=== PATIENT | female | born 1965 | race African-American/Black ===

== ENCOUNTER 2022-06-25 14:27 | Inpatient (IN) ==
[2022-06-25] MEDS ORDERED: SODIUM CHLORIDE 0.9% 1,000 ML IV STA (15:14)
[2022-06-25 15:45] LABS: Basophils # 0.1 10*3/uL (0.0-0.2); Basophils % 0.3 % (0.0-0.8); Eosinophils % 0.1 % (0.00-10.9); Hematocrit 35.5 VOL% (35.7-47.0); Hemoglobin 11.6 GM/DL (12.0-16.0); Immature Granulocytes % 2.5 %; Immature Granulocytes Absolute 0.62 #; Lymphocytes # 1.1 10*3/uL (1.4-4.0); Lymphocytes % 4.3 % (21.3-54.2); Mean Corpuscular HGB Conc 32.7 GM/DL (32-36); Mean Corpuscular Volume 93.2 FL (87-102); Mean Platelet Volume 10.6 FL (9.6-12.0); Monocytes # 1.1 10*3/uL (0.11-0.8); Monocytes % 4.5 % (1.7-12.7); Neutrophils % 88.3 % (38.7-73.9); Platelet Count 184 T/CUMM (130-400); Red Blood Count 3.81 MC/CUMM (3.8-5.5); White Blood Count 25.1 T/CUMM (4-12)
[2022-06-25 15:53] LABS: Albumin 2.6 G/DL (3.4-5.0); Bilirubin,Total 1.1 MG/DL (0.20-1.00); Calcium 8.4 MG/DL (8.5-10.1); Osmolality,Calculated 283.5 MOS/KG (273-304); Potassium 3.5 MMOL/L (3.5-5.1); Total Protein 6.5 G/DL (6.4-8.2)
[2022-06-25] MEDS ORDERED: LACTATED RINGERS 1,000 ML IV ONE ×2 (15:56→17:26)
[2022-06-25 15:57] LABS: Amorphous Crystals,Urine Occasional /HPF (Few); Bacteria,Urine Occasional /HPF (Few); Mucus,Urine Many /LPF (Occasional); Urine Appearance Clear (Clear); Urine Color Yellow (Yellow)
[2022-06-25 15:58] LABS: Bilirubin,Urine Small mg/dL (Negative); Blood, Urine Large mg/dL (Negative); Glucose,Urine (UA) Negative (Negative); Ketones,Urine Negative (Negative); Nitrite,Urine Negative (Negative); Protein,Urine >=300 mg/dL (Negative); Urine Specific Gravity >= 1.030 (1.001-1.035); Urine Urobilinogen < 2.0 eU/dL (<2.0)
[2022-06-25 16:16] LABS: Arterial Base Excess iSTAT -3 MMOL/L (-2.5-2.5); Arterial Bicarbonate iSTAT 21.5 MMOL/L (20-26); Arterial O2 Saturation iSTAT 98 % (95-100); Arterial PCO2 iSTAT 35 MM HG (35-48); Arterial PO2 iSTAT 108 MM HG (80-95); Arterial Total CO2 iSTAT 23 MMO/L (23-27); Arterial pH iSTAT 7.401 (7.35-7.45)
[2022-06-25 16:19] LABS: Band Neutrophils 18 % (0-10); Lymphocytes 7 % (20-55); Metamyelocytes 3 %; Total Cells Counted 100
[2022-06-25] MEDS ORDERED: VANCOMYCIN INJ 1,000 MG in SODIUM CHLORIDE 0.9% 250 ML IV STA (16:36)
[2022-06-25] MEDS ORDERED: PIPERACILLIN/TAZOBACTAM 3,375 MG in SODIUM CHLORIDE 0.9% 100 ML IV STA (16:36)
[2022-06-25] MEDS ORDERED: LACTATED RINGERS 400 ML IV ONE (17:31)
[2022-06-25 18:02] LABS: Thyroid Stimulating Hormone 1.68 uIU/ml (0.358-3.74)
[2022-06-25] MEDS: ONDANSETRON 4 MG/2 ML VIAL IV PRN ×2 (18:24→20:00)
[2022-06-25] MEDS ORDERED: VANCOMYCIN INJ 500 MG in SODIUM CHLORIDE 0.9% 100 ML IV ONE (19:00)
[2022-06-25] MEDS: HEPARIN 5,000 UNIT/1 ML VIAL SUBCUT SCH (22:10)
[2022-06-25 22:57] LABS: Amorphous Crystals,Urine Moderate /HPF (Few); RBC,Urine 89 /HPF (0-4); Squamous Epithelial Cell,Urine Occasional /HPF (0-10)
[2022-06-25 22:58] LABS: Glucose,Urine (UA) Negative (Negative); Ketones,Urine Negative (Negative); Nitrite,Urine Negative (Negative); Protein,Urine >=300 mg/dL (Negative); Urine Appearance Cloudy (Clear); Urine Color Yellow (Yellow); Urine Specific Gravity 1.025 (1.001-1.035); Urine pH 5.5 (4.5-8.0)
[2022-06-25 22:59] LABS: Bilirubin,Urine Small mg/dL (Negative); Blood, Urine Large mg/dL (Negative)
[2022-06-26 01:33] LABS: Basophils % 0.1 % (0.0-0.8); Hematocrit 32.4 VOL% (35.7-47.0); Hemoglobin 11.1 GM/DL (12.0-16.0); Immature Granulocytes % 1.5 %; Immature Granulocytes Absolute 0.43 #; Lymphocytes # 1.7 10*3/uL (1.4-4.0); Lymphocytes % 5.8 % (21.3-54.2); Mean Corpuscular HGB Conc 34.3 GM/DL (32-36); Mean Corpuscular Volume 91.5 FL (87-102); Mean Platelet Volume 10.7 FL (9.6-12.0); Monocytes # 1.6 10*3/uL (0.11-0.8); Monocytes % 5.4 % (1.7-12.7); Neutrophils % 87.2 % (38.7-73.9); Platelet Count 176 T/CUMM (130-400); Red Blood Count 3.54 MC/CUMM (3.8-5.5); Red Cell Distribution Width 13.9 % (9.3-17.3); White Blood Count 29.3 T/CUMM (4-12)
[2022-06-26 01:50] LABS: Albumin 2.3 G/DL (3.4-5.0); Bilirubin,Total 1.1 MG/DL (0.20-1.00); Calcium 8.1 MG/DL (8.5-10.1); Osmolality,Calculated 284.7 MOS/KG (273-304); Potassium 3.3 MMOL/L (3.5-5.1); Total Protein 6.4 G/DL (6.4-8.2)
[2022-06-26 02:48] LABS: Band Neutrophils 4 % (0-10); Lymphocytes 7 % (20-55); Nucleated Red Blood Cells 1 /100 WBC (0-5); Total Cells Counted 100
[2022-06-26 02:49] LABS: Platelet Estimate Adequate
[2022-06-26] MEDS: PIPERACILLIN/TAZOBACTAM 3.375 MG in SODIUM CHLORIDE 0.9% 100 ML IV SCH ×2 (03:30→16:30)
[2022-06-26] MEDS: LACTATED RINGERS 1,000 ML IV SCH ×3 (09:00→20:15)
[2022-06-26] MEDS: PANTOPRAZOLE 40 MG TABLET PO SCH (09:01)
[2022-06-26] MEDS: HEPARIN 5,000 UNIT/1 ML VIAL SUBCUT SCH ×2 (09:01→20:25)
[2022-06-26] MEDS: POTASSIUM CHLORIDE 20 MEQ TABLET PO SCH ×3 (10:47→21:00)
[2022-06-26] MEDS ORDERED: POTASSIUM CHLORIDE 20 MEQ TABLET PO SCH (14:00)
[2022-06-26] MEDS: ACETAMINOPHEN 325 MG TABLET PO PRN (15:32)
[2022-06-26] MEDS ORDERED: VANCOMYCIN INJ 1,500 MG in SODIUM CHLORIDE 0.9% 500 ML IV PRN (17:00)
[2022-06-26] MEDS ORDERED: VANCOMYCIN INJ 1,500 MG in SODIUM CHLORIDE 0.9% 500 ML IV ONE (21:00)
[2022-06-27] MEDS: LACTATED RINGERS 1,000 ML IV SCH ×4 (03:00→19:56)
[2022-06-27] MEDS: PIPERACILLIN/TAZOBACTAM 3.375 MG in SODIUM CHLORIDE 0.9% 100 ML IV SCH ×2 (03:00→16:30)
[2022-06-27 06:04] LABS: Basophils # 0.1 10*3/uL (0.0-0.2); Basophils % 0.3 % (0.0-0.8); Eosinophils # 0.1 10*3/uL (0.0-0.87); Eosinophils % 0.3 % (0.00-10.9); Hematocrit 31.1 VOL% (35.7-47.0); Hemoglobin 10.8 GM/DL (12.0-16.0); Immature Granulocytes % 2.3 %; Immature Granulocytes Absolute 0.58 #; Lymphocytes # 2.2 10*3/uL (1.4-4.0); Lymphocytes % 8.8 % (21.3-54.2); Mean Corpuscular HGB Conc 34.7 GM/DL (32-36); Mean Platelet Volume 11.1 FL (9.6-12.0); Monocytes # 1.1 10*3/uL (0.11-0.8); Monocytes % 4.5 % (1.7-12.7); Neutrophils % 83.8 % (38.7-73.9); Platelet Count 151 T/CUMM (130-400); Red Blood Count 3.38 MC/CUMM (3.8-5.5); Red Cell Distribution Width 14.4 % (9.3-17.3); White Blood Count 25.2 T/CUMM (4-12)
[2022-06-27 06:29] LABS: Albumin 1.8 G/DL (3.4-5.0); Bilirubin,Total 0.8 MG/DL (0.20-1.00); Calcium 8.4 MG/DL (8.5-10.1); Osmolality,Calculated 284.5 MOS/KG (273-304); Potassium 4.7 MMOL/L (3.5-5.1); Total Protein 6.1 G/DL (6.4-8.2)
[2022-06-27 06:33] LABS: Atypical Lymphocytes Few; Eosinophils 1 % (0-10); Lymphocytes 7 % (20-55); Platelet Estimate Adequate; Total Cells Counted 100
[2022-06-27 06:34] LABS: Anisocytosis Slight; Burr Cells Few
[2022-06-27] MEDS: HEPARIN 5,000 UNIT/1 ML VIAL SUBCUT SCH ×2 (09:05→20:42)
[2022-06-27] MEDS: PANTOPRAZOLE 40 MG TABLET PO SCH (09:05)
[2022-06-27] MEDS: traMADol 50 MG TABLET PO PRN (19:00)
[2022-06-27] MEDS: NYSTATIN CREAM 15 GM TUBE TOP SCH (20:42)
[2022-06-27] MEDS: NYSTATIN POWDER 15 GM BOTTLE TOP SCH (20:43)
[2022-06-28] MEDS: LACTATED RINGERS 1,000 ML IV SCH ×3 (03:14→14:45)
[2022-06-28] MEDS: PIPERACILLIN/TAZOBACTAM 3.375 MG in SODIUM CHLORIDE 0.9% 100 ML IV SCH ×3 (04:43→23:32)
[2022-06-28 05:21] LABS: Basophils # 0.1 10*3/uL (0.0-0.2); Basophils % 0.4 % (0.0-0.8); Eosinophils # 0.1 10*3/uL (0.0-0.87); Eosinophils % 0.5 % (0.00-10.9); Hematocrit 31.5 VOL% (35.7-47.0); Hemoglobin 10.5 GM/DL (12.0-16.0); Immature Granulocytes % 1.4 %; Immature Granulocytes Absolute 0.37 #; Lymphocytes # 2.9 10*3/uL (1.4-4.0); Lymphocytes % 11.2 % (21.3-54.2); Mean Corpuscular HGB Conc 33.3 GM/DL (32-36); Mean Corpuscular Volume 93.5 FL (87-102); Mean Platelet Volume 11.5 FL (9.6-12.0); Monocytes # 1.1 10*3/uL (0.11-0.8); Monocytes % 4.1 % (1.7-12.7); Neutrophils % 82.4 % (38.7-73.9); Platelet Count 160 T/CUMM (130-400); Red Blood Count 3.37 MC/CUMM (3.8-5.5); Red Cell Distribution Width 14.6 % (9.3-17.3)
[2022-06-28 05:38] LABS: Albumin 1.7 G/DL (3.4-5.0); Bilirubin,Total 0.8 MG/DL (0.20-1.00); Calcium 8.8 MG/DL (8.5-10.1); Osmolality,Calculated 277.7 MOS/KG (273-304); Potassium 4.4 MMOL/L (3.5-5.1); Total Protein 6.1 G/DL (6.4-8.2)
[2022-06-28 05:41] LABS: Band Neutrophils 2 % (0-10); Lymphocytes 8 % (20-55); Platelet Estimate Adequate; Total Cells Counted 100
[2022-06-28] MEDS: PANTOPRAZOLE 40 MG TABLET PO SCH (08:38)
[2022-06-28] MEDS: NYSTATIN POWDER 15 GM BOTTLE TOP SCH ×2 (08:38→21:26)
[2022-06-28] MEDS: HEPARIN 5,000 UNIT/1 ML VIAL SUBCUT SCH ×2 (08:38→21:26)
[2022-06-28] MEDS: NYSTATIN CREAM 15 GM TUBE TOP SCH ×2 (08:38→21:26)
[2022-06-29] MEDS: LACTATED RINGERS 1,000 ML IV SCH ×2 (00:40→10:00)
[2022-06-29 04:56] LABS: Basophils # 0.1 10*3/uL (0.0-0.2); Basophils % 0.4 % (0.0-0.8); Eosinophils # 0.2 10*3/uL (0.0-0.87); Eosinophils % 0.7 % (0.00-10.9); Hematocrit 28.9 VOL% (35.7-47.0); Hemoglobin 9.6 GM/DL (12.0-16.0); Immature Granulocytes % 2.2 %; Immature Granulocytes Absolute 0.51 #; Lymphocytes # 3.4 10*3/uL (1.4-4.0); Lymphocytes % 14.6 % (21.3-54.2); Mean Corpuscular HGB Conc 33.2 GM/DL (32-36); Mean Corpuscular Volume 93.8 FL (87-102); Monocytes # 1.4 10*3/uL (0.11-0.8); Monocytes % 6.1 % (1.7-12.7); Platelet Count 190 T/CUMM (130-400); Red Blood Count 3.08 MC/CUMM (3.8-5.5); Red Cell Distribution Width 14.6 % (9.3-17.3); White Blood Count 23.5 T/CUMM (4-12)
[2022-06-29 05:19] LABS: Eosinophils 2 % (0-10); Lymphocytes 10 % (20-55); Platelet Estimate Adequate; Total Cells Counted 100
[2022-06-29 05:27] LABS: Calcium 8.6 MG/DL (8.5-10.1); Osmolality,Calculated 281.3 MOS/KG (273-304); Potassium 4.3 MMOL/L (3.5-5.1)
[2022-06-29] MEDS: PIPERACILLIN/TAZOBACTAM 3.375 MG in SODIUM CHLORIDE 0.9% 100 ML IV SCH (05:59)
[2022-06-29] MEDS: PANTOPRAZOLE 40 MG TABLET PO SCH (08:21)
[2022-06-29] MEDS: HEPARIN 5,000 UNIT/1 ML VIAL SUBCUT SCH ×2 (08:21→20:55)
[2022-06-29] MEDS: NYSTATIN CREAM 15 GM TUBE TOP SCH ×2 (08:22→20:55)
[2022-06-29] MEDS: NYSTATIN POWDER 15 GM BOTTLE TOP SCH ×2 (08:22→20:55)
[2022-06-29] MEDS ORDERED: PNEUMOCOCCAL VACCINE (23 VALENT) 0.5 ML VIAL IM ONE (09:00)
[2022-06-29] MEDS ORDERED: INFLUENZA VIRUS VACCINE 0.5 ML SYRINGE IM ONE (09:26)
[2022-06-29] MEDS: CHOLESTYRAMINE/ASPARTAME 4 GM PACK PO SCH ×2 (10:54→21:28)
[2022-06-29] MEDS: amLODIPine 5 MG TABLET PO SCH (10:54)
[2022-06-29] MEDS: METOPROLOL TARTRATE 50 MG TABLET PO SCH ×2 (10:54→20:55)
[2022-06-29] MEDS: MENTHOL/ZINC OXIDE OINT 71 GM JAR TOP SCH (20:55)
[2022-06-30 06:00] LABS: Basophils # 0.1 10*3/uL (0.0-0.2); Basophils % 0.5 % (0.0-0.8); Eosinophils # 0.2 10*3/uL (0.0-0.87); Hemoglobin 9.9 GM/DL (12.0-16.0); Immature Granulocytes % 5.3 %; Immature Granulocytes Absolute 1.25 #; Lymphocytes # 3.8 10*3/uL (1.4-4.0); Lymphocytes % 16.4 % (21.3-54.2); Mean Corpuscular Volume 94.6 FL (87-102); Mean Platelet Volume 10.8 FL (9.6-12.0); Monocytes # 1.4 10*3/uL (0.11-0.8); Neutrophils % 70.8 % (38.7-73.9); Platelet Count 230 T/CUMM (130-400); Red Blood Count 3.17 MC/CUMM (3.8-5.5); Red Cell Distribution Width 14.5 % (9.3-17.3); White Blood Count 23.5 T/CUMM (4-12)
[2022-06-30 06:23] LABS: Eosinophils 2 % (0-10); Hypochromia Slight; Lymphocytes 14 % (20-55); Microcytosis Slight; Platelet Estimate Adequate; Total Cells Counted 100
[2022-06-30 06:28] LABS: Calcium 8.7 MG/DL (8.5-10.1); Osmolality,Calculated 281.3 MOS/KG (273-304); Potassium 4.2 MMOL/L (3.5-5.1)
[2022-06-30] MEDS: HEPARIN 5,000 UNIT/1 ML VIAL SUBCUT SCH ×2 (08:14→20:14)
[2022-06-30] MEDS: MENTHOL/ZINC OXIDE OINT 71 GM JAR TOP SCH ×2 (08:14→20:17)
[2022-06-30] MEDS: traMADol 50 MG TABLET PO PRN ×2 (08:14→13:19)
[2022-06-30] MEDS: PANTOPRAZOLE 40 MG TABLET PO SCH (08:15)
[2022-06-30] MEDS: NYSTATIN POWDER 15 GM BOTTLE TOP SCH ×2 (08:15→20:19)
[2022-06-30] MEDS: amLODIPine 5 MG TABLET PO SCH (08:15)
[2022-06-30] MEDS: METOPROLOL TARTRATE 50 MG TABLET PO SCH ×2 (08:15→20:14)
[2022-06-30] MEDS: NYSTATIN CREAM 15 GM TUBE TOP SCH ×2 (08:15→20:19)
[2022-06-30] MEDS ORDERED: cefTRIAXone 1,000 MG in SODIUM CHLORIDE 0.9% 100 ML IV SCH (08:30)
[2022-06-30] MEDS: CHOLESTYRAMINE/ASPARTAME 4 GM PACK PO SCH (09:23)
[2022-06-30 12:13] LABS: INR 0.9; PT Patient Result 10.4 SECS (10.1-12.1)
[2022-06-30] MEDS: cefTRIAXone 2,000 MG in SODIUM CHLORIDE 0.9% 100 ML IV SCH (20:14)
[2022-07-01 05:37] LABS: Basophils # 0.1 10*3/uL (0.0-0.2); Basophils % 0.5 % (0.0-0.8); Eosinophils # 0.2 10*3/uL (0.0-0.87); Eosinophils % 0.9 % (0.00-10.9); Hematocrit 29.8 VOL% (35.7-47.0); Hemoglobin 9.7 GM/DL (12.0-16.0); Immature Granulocytes % 5.6 %; Immature Granulocytes Absolute 1.19 #; Lymphocytes # 4.1 10*3/uL (1.4-4.0); Mean Corpuscular HGB Conc 32.6 GM/DL (32-36); Mean Platelet Volume 10.6 FL (9.6-12.0); Monocytes # 1.6 10*3/uL (0.11-0.8); Monocytes % 7.5 % (1.7-12.7); Neutrophils % 66.5 % (38.7-73.9); Platelet Count 289 T/CUMM (130-400); Red Blood Count 3.17 MC/CUMM (3.8-5.5); Red Cell Distribution Width 14.1 % (9.3-17.3); White Blood Count 21.4 T/CUMM (4-12)
[2022-07-01 05:57] LABS: Calcium 8.7 MG/DL (8.5-10.1); Osmolality,Calculated 275.7 MOS/KG (273-304); Potassium 4.1 MMOL/L (3.5-5.1)
[2022-07-01 06:04] LABS: Anisocytosis Slight; Atypical Lymphocytes Few; Band Neutrophils 7 % (0-10); Eosinophils 3 % (0-10); Lymphocytes 23 % (20-55); Myelocytes 1 %; Platelet Estimate Normal; Total Cells Counted 100
[2022-07-01] MEDS: PANTOPRAZOLE 40 MG TABLET PO SCH (09:09)
[2022-07-01] MEDS: amLODIPine 5 MG TABLET PO SCH (09:09)
[2022-07-01] MEDS: HEPARIN 5,000 UNIT/1 ML VIAL SUBCUT SCH ×2 (09:09→21:41)
[2022-07-01] MEDS: METOPROLOL TARTRATE 50 MG TABLET PO SCH ×2 (09:09→21:41)
[2022-07-01] MEDS: NYSTATIN CREAM 15 GM TUBE TOP SCH ×2 (09:11→21:40)
[2022-07-01] MEDS: MENTHOL/ZINC OXIDE OINT 71 GM JAR TOP SCH ×2 (09:11→21:40)
[2022-07-01] MEDS: NYSTATIN POWDER 15 GM BOTTLE TOP SCH ×2 (09:11→21:40)
[2022-07-01] MEDS: cefTRIAXone 2,000 MG in SODIUM CHLORIDE 0.9% 100 ML IV SCH (21:41)
[2022-07-02 05:29] LABS: Basophils # 0.1 10*3/uL (0.0-0.2); Basophils % 0.4 % (0.0-0.8); Eosinophils # 0.1 10*3/uL (0.0-0.87); Eosinophils % 0.7 % (0.00-10.9); Hematocrit 29.9 VOL% (35.7-47.0); Immature Granulocytes % 4.4 %; Immature Granulocytes Absolute 0.83 #; Lymphocytes # 3.7 10*3/uL (1.4-4.0); Lymphocytes % 19.5 % (21.3-54.2); Mean Corpuscular HGB Conc 33.4 GM/DL (32-36); Mean Corpuscular Volume 94.6 FL (87-102); Mean Platelet Volume 10.8 FL (9.6-12.0); Monocytes # 1.3 10*3/uL (0.11-0.8); Monocytes % 6.9 % (1.7-12.7); Neutrophils % 68.1 % (38.7-73.9); Platelet Count 342 T/CUMM (130-400); Red Blood Count 3.16 MC/CUMM (3.8-5.5); Red Cell Distribution Width 14.2 % (9.3-17.3)
[2022-07-02 05:34] LABS: Calcium 8.8 MG/DL (8.5-10.1); Osmolality,Calculated 274.7 MOS/KG (273-304)
[2022-07-02 07:09] LABS: Atypical Lymphocytes Few; Band Neutrophils 2 % (0-10); Eosinophils 1 % (0-10); Lymphocytes 18 % (20-55); Nucleated Red Blood Cells 2 /100 WBC (0-5); Platelet Estimate Normal; Total Cells Counted 100
[2022-07-02 07:10] LABS: Anisocytosis Slight; Macrocytosis Slight
[2022-07-02] MEDS: NYSTATIN POWDER 15 GM BOTTLE TOP SCH ×2 (11:04→21:53)
[2022-07-02] MEDS: METOPROLOL TARTRATE 50 MG TABLET PO SCH ×2 (11:04→21:48)
[2022-07-02] MEDS: NYSTATIN CREAM 15 GM TUBE TOP SCH ×2 (11:04→21:53)
[2022-07-02] MEDS: HEPARIN 5,000 UNIT/1 ML VIAL SUBCUT SCH ×2 (11:04→21:48)
[2022-07-02] MEDS: MENTHOL/ZINC OXIDE OINT 71 GM JAR TOP SCH ×2 (11:04→21:53)
[2022-07-02] MEDS: amLODIPine 5 MG TABLET PO SCH (11:04)
[2022-07-02] MEDS: PANTOPRAZOLE 40 MG TABLET PO SCH (11:05)
[2022-07-02] MEDS: cefTRIAXone 2,000 MG in SODIUM CHLORIDE 0.9% 100 ML IV SCH (21:48)
[2022-07-03 04:49] LABS: Basophils # 0.1 10*3/uL (0.0-0.2); Basophils % 0.4 % (0.0-0.8); Eosinophils # 0.1 10*3/uL (0.0-0.87); Eosinophils % 0.7 % (0.00-10.9); Hematocrit 29.3 VOL% (35.7-47.0); Hemoglobin 9.9 GM/DL (12.0-16.0); Immature Granulocytes % 1.9 %; Immature Granulocytes Absolute 0.32 #; Lymphocytes # 3.5 10*3/uL (1.4-4.0); Lymphocytes % 20.9 % (21.3-54.2); Mean Corpuscular HGB Conc 33.8 GM/DL (32-36); Mean Corpuscular Volume 93.6 FL (87-102); Mean Platelet Volume 10.3 FL (9.6-12.0); Monocytes # 1.2 10*3/uL (0.11-0.8); Monocytes % 7.4 % (1.7-12.7); Neutrophils % 68.7 % (38.7-73.9); Platelet Count 361 T/CUMM (130-400); Red Blood Count 3.13 MC/CUMM (3.8-5.5); Red Cell Distribution Width 14.2 % (9.3-17.3); White Blood Count 16.7 T/CUMM (4-12)
[2022-07-03 05:12] LABS: Calcium 8.8 MG/DL (8.5-10.1); Osmolality,Calculated 281.3 MOS/KG (273-304)
[2022-07-03] MEDS: amLODIPine 5 MG TABLET PO SCH (09:27)
[2022-07-03] MEDS: METOPROLOL TARTRATE 50 MG TABLET PO SCH ×2 (09:27→22:37)
[2022-07-03] MEDS: PANTOPRAZOLE 40 MG TABLET PO SCH (09:27)
[2022-07-03] MEDS: HEPARIN 5,000 UNIT/1 ML VIAL SUBCUT SCH ×2 (09:27→22:38)
[2022-07-03] MEDS: NYSTATIN POWDER 15 GM BOTTLE TOP SCH (09:29)
[2022-07-03] MEDS: NYSTATIN CREAM 15 GM TUBE TOP SCH (09:29)
[2022-07-03] MEDS: MENTHOL/ZINC OXIDE OINT 71 GM JAR TOP SCH (09:29)
[2022-07-03] MEDS: cefTRIAXone 2,000 MG in SODIUM CHLORIDE 0.9% 100 ML IV SCH (22:36)
[2022-07-03] MEDS: SIMETHICONE CHEW 125 MG TABLET PO SCH (22:37)
[2022-07-03] MEDS: BISACODYL 5 MG TABLET PO PRN (22:37)
[2022-07-03] MEDS: traMADol 50 MG TABLET PO PRN (22:38)
[2022-07-03] MEDS: POLYETHYLENE GLYCOL POWDER 17 GM PACK PO SCH (22:38)
[2022-07-04] MEDS: NYSTATIN CREAM 15 GM TUBE TOP SCH ×3 (01:55→21:37)
[2022-07-04] MEDS: MENTHOL/ZINC OXIDE OINT 71 GM JAR TOP SCH ×3 (01:55→21:37)
[2022-07-04] MEDS: NYSTATIN POWDER 15 GM BOTTLE TOP SCH ×2 (01:56→09:20)
[2022-07-04 05:09] LABS: Basophils # 0.1 10*3/uL (0.0-0.2); Basophils % 0.4 % (0.0-0.8); Eosinophils # 0.1 10*3/uL (0.0-0.87); Eosinophils % 0.7 % (0.00-10.9); Hematocrit 30.6 VOL% (35.7-47.0); Immature Granulocytes % 1.1 %; Immature Granulocytes Absolute 0.16 #; Lymphocytes % 20.8 % (21.3-54.2); Mean Corpuscular HGB Conc 32.7 GM/DL (32-36); Mean Platelet Volume 9.7 FL (9.6-12.0); Monocytes % 6.8 % (1.7-12.7); Neutrophils % 70.2 % (38.7-73.9); Platelet Count 414 T/CUMM (130-400); Red Blood Count 3.29 MC/CUMM (3.8-5.5); Red Cell Distribution Width 14.1 % (9.3-17.3); White Blood Count 14.38 T/CUMM (4-12)
[2022-07-04 05:33] LABS: Calcium 8.9 MG/DL (8.5-10.1); Osmolality,Calculated 279.4 MOS/KG (273-304)
[2022-07-04] MEDS: amLODIPine 5 MG TABLET PO SCH (09:19)
[2022-07-04] MEDS: PANTOPRAZOLE 40 MG TABLET PO SCH (09:19)
[2022-07-04] MEDS: SIMETHICONE CHEW 125 MG TABLET PO SCH ×4 (09:19→21:35)
[2022-07-04] MEDS: METOPROLOL TARTRATE 50 MG TABLET PO SCH ×2 (09:19→21:35)
[2022-07-04] MEDS: POLYETHYLENE GLYCOL POWDER 17 GM PACK PO SCH ×2 (09:20→21:35)
[2022-07-04] MEDS: HEPARIN 5,000 UNIT/1 ML VIAL SUBCUT SCH ×2 (09:20→21:36)
[2022-07-04] MEDS: traMADol 50 MG TABLET PO PRN (21:35)
[2022-07-04] MEDS: cefTRIAXone 2,000 MG in SODIUM CHLORIDE 0.9% 100 ML IV SCH (21:36)
[2022-07-04] MEDS: ACETAMINOPHEN 325 MG TABLET PO PRN (23:16)
[2022-07-05] MEDS: traMADol 50 MG TABLET PO PRN ×3 (05:05→21:55)
[2022-07-05 06:39] LABS: Basophils # 0.1 10*3/uL (0.0-0.2); Basophils % 0.6 % (0.0-0.8); Eosinophils # 0.1 10*3/uL (0.0-0.87); Eosinophils % 1.1 % (0.00-10.9); Hematocrit 31.8 VOL% (35.7-47.0); Hemoglobin 10.4 GM/DL (12.0-16.0); Immature Granulocytes % 0.7 %; Immature Granulocytes Absolute 0.08 #; Lymphocytes # 2.6 10*3/uL (1.4-4.0); Lymphocytes % 21.5 % (21.3-54.2); Mean Corpuscular HGB Conc 32.7 GM/DL (32-36); Mean Corpuscular Volume 94.1 FL (87-102); Mean Platelet Volume 9.9 FL (9.6-12.0); Monocytes # 0.8 10*3/uL (0.11-0.8); Monocytes % 6.7 % (1.7-12.7); Neutrophils % 69.4 % (38.7-73.9); Platelet Count 424 T/CUMM (130-400); Red Blood Count 3.38 MC/CUMM (3.8-5.5); Red Cell Distribution Width 13.8 % (9.3-17.3); White Blood Count 12.02 T/CUMM (4-12)
[2022-07-05 07:13] LABS: Calcium 9.1 MG/DL (8.5-10.1); Osmolality,Calculated 274.8 MOS/KG (273-304); Potassium 3.9 MMOL/L (3.5-5.1)
[2022-07-05] MEDS: SIMETHICONE CHEW 125 MG TABLET PO SCH ×4 (09:30→21:55)
[2022-07-05] MEDS: amLODIPine 5 MG TABLET PO SCH (09:30)
[2022-07-05] MEDS: METOPROLOL TARTRATE 50 MG TABLET PO SCH ×2 (09:30→21:55)
[2022-07-05] MEDS: PANTOPRAZOLE 40 MG TABLET PO SCH (09:31)
[2022-07-05] MEDS: NYSTATIN CREAM 15 GM TUBE TOP SCH ×2 (09:32→21:56)
[2022-07-05] MEDS: MENTHOL/ZINC OXIDE OINT 71 GM JAR TOP SCH ×2 (09:32→21:56)
[2022-07-05] MEDS: POLYETHYLENE GLYCOL POWDER 17 GM PACK PO SCH ×2 (09:33→21:53)
[2022-07-05] MEDS: HEPARIN 5,000 UNIT/1 ML VIAL SUBCUT SCH ×2 (09:34→21:55)
[2022-07-05] MEDS: LINACLOTIDE 145 MCG CAPSULE PO SCH (09:39)
[2022-07-05] MEDS: ACETAMINOPHEN 325 MG TABLET PO PRN (16:05)
[2022-07-05] MEDS: cefTRIAXone 2,000 MG in SODIUM CHLORIDE 0.9% 100 ML IV SCH (21:53)
[2022-07-05] MEDS: BISACODYL 5 MG TABLET PO PRN (21:55)
[2022-07-06 05:39] LABS: Basophils # 0.1 10*3/uL (0.0-0.2); Basophils % 0.6 % (0.0-0.8); Eosinophils # 0.1 10*3/uL (0.0-0.87); Eosinophils % 1.2 % (0.00-10.9); Hematocrit 30.4 VOL% (35.7-47.0); Hemoglobin 9.8 GM/DL (12.0-16.0); Immature Granulocytes % 0.6 %; Immature Granulocytes Absolute 0.07 #; Lymphocytes # 2.5 10*3/uL (1.4-4.0); Mean Corpuscular HGB Conc 32.2 GM/DL (32-36); Mean Corpuscular Volume 94.1 FL (87-102); Mean Platelet Volume 10.1 FL (9.6-12.0); Monocytes # 0.9 10*3/uL (0.11-0.8); Monocytes % 7.6 % (1.7-12.7); Platelet Count 436 T/CUMM (130-400); Red Blood Count 3.23 MC/CUMM (3.8-5.5); Red Cell Distribution Width 13.7 % (9.3-17.3); White Blood Count 11.13 T/CUMM (4-12)
[2022-07-06 06:06] LABS: Calcium 9.3 MG/DL (8.5-10.1); Osmolality,Calculated 279.5 MOS/KG (273-304); Potassium 3.9 MMOL/L (3.5-5.1)
[2022-07-06] MEDS: SIMETHICONE CHEW 125 MG TABLET PO SCH ×4 (09:21→21:50)
[2022-07-06] MEDS: traMADol 50 MG TABLET PO PRN (09:21)
[2022-07-06] MEDS: METOPROLOL TARTRATE 50 MG TABLET PO SCH ×2 (09:21→21:50)
[2022-07-06] MEDS: amLODIPine 5 MG TABLET PO SCH (09:22)
[2022-07-06] MEDS: MENTHOL/ZINC OXIDE OINT 71 GM JAR TOP SCH ×2 (09:22→21:55)
[2022-07-06] MEDS: LINACLOTIDE 145 MCG CAPSULE PO SCH (09:22)
[2022-07-06] MEDS: PANTOPRAZOLE 40 MG TABLET PO SCH (09:22)
[2022-07-06] MEDS: NYSTATIN CREAM 15 GM TUBE TOP SCH ×2 (09:23→21:50)
[2022-07-06] MEDS: POLYETHYLENE GLYCOL POWDER 17 GM PACK PO SCH ×2 (09:23→21:50)
[2022-07-06] MEDS: HEPARIN 5,000 UNIT/1 ML VIAL SUBCUT SCH ×2 (09:25→21:50)
[2022-07-06] MEDS: cefTRIAXone 2,000 MG in SODIUM CHLORIDE 0.9% 100 ML IV SCH (21:58)
[2022-07-07 04:06] LABS: Basophils # 0.1 10*3/uL (0.0-0.2); Basophils % 0.5 % (0.0-0.8); Eosinophils # 0.1 10*3/uL (0.0-0.87); Eosinophils % 0.7 % (0.00-10.9); Hematocrit 29.9 VOL% (35.7-47.0); Hemoglobin 9.7 GM/DL (12.0-16.0); Immature Granulocytes % 0.7 %; Immature Granulocytes Absolute 0.08 #; Lymphocytes # 2.7 10*3/uL (1.4-4.0); Lymphocytes % 24.2 % (21.3-54.2); Mean Corpuscular HGB Conc 32.4 GM/DL (32-36); Mean Corpuscular Volume 94.6 FL (87-102); Mean Platelet Volume 9.8 FL (9.6-12.0); Monocytes # 0.9 10*3/uL (0.11-0.8); Monocytes % 7.7 % (1.7-12.7); Neutrophils % 66.2 % (38.7-73.9); Platelet Count 395 T/CUMM (130-400); Red Blood Count 3.16 MC/CUMM (3.8-5.5); Red Cell Distribution Width 13.8 % (9.3-17.3); White Blood Count 10.97 T/CUMM (4-12)
[2022-07-07 04:27] LABS: Calcium 9.2 MG/DL (8.5-10.1); Osmolality,Calculated 279.5 MOS/KG (273-304); Potassium 3.7 MMOL/L (3.5-5.1)
[2022-07-07] MEDS: METOPROLOL TARTRATE 50 MG TABLET PO SCH ×2 (10:17→21:09)
[2022-07-07] MEDS: SIMETHICONE CHEW 125 MG TABLET PO SCH ×4 (10:17→21:09)
[2022-07-07] MEDS: POLYETHYLENE GLYCOL POWDER 17 GM PACK PO SCH ×2 (10:17→21:09)
[2022-07-07] MEDS: NYSTATIN CREAM 15 GM TUBE TOP SCH ×2 (10:17→21:10)
[2022-07-07] MEDS: HEPARIN 5,000 UNIT/1 ML VIAL SUBCUT SCH ×2 (10:17→21:10)
[2022-07-07] MEDS: MENTHOL/ZINC OXIDE OINT 71 GM JAR TOP SCH ×2 (10:17→21:10)
[2022-07-07] MEDS: LINACLOTIDE 145 MCG CAPSULE PO SCH (10:17)
[2022-07-07] MEDS: PANTOPRAZOLE 40 MG TABLET PO SCH (10:18)
[2022-07-07] MEDS: amLODIPine 5 MG TABLET PO SCH (10:18)
[2022-07-07] MEDS ORDERED: amLODIPine 5 MG TABLET PO ONE (11:03)
[2022-07-07] MEDS: cefTRIAXone 2,000 MG in SODIUM CHLORIDE 0.9% 100 ML IV SCH (21:17)
[2022-07-08 06:11] LABS: Calcium 9.2 MG/DL (8.5-10.1); Osmolality,Calculated 276.5 MOS/KG (273-304); Potassium 3.7 MMOL/L (3.5-5.1)
[2022-07-08 06:25] LABS: Basophils # 0.1 10*3/uL (0.0-0.2); Basophils % 0.9 % (0.0-0.8); Eosinophils # 0.1 10*3/uL (0.0-0.87); Eosinophils % 0.8 % (0.00-10.9); Hematocrit 28.6 VOL% (35.7-47.0); Hemoglobin 9.3 GM/DL (12.0-16.0); Immature Granulocytes % 0.4 %; Immature Granulocytes Absolute 0.04 #; Lymphocytes # 2.7 10*3/uL (1.4-4.0); Lymphocytes % 29.5 % (21.3-54.2); Mean Corpuscular HGB Conc 32.5 GM/DL (32-36); Mean Corpuscular Volume 95.7 FL (87-102); Mean Platelet Volume 10.1 FL (9.6-12.0); Monocytes # 0.9 10*3/uL (0.11-0.8); Monocytes % 9.9 % (1.7-12.7); Neutrophils % 58.5 % (38.7-73.9); Platelet Count 414 T/CUMM (130-400); Red Blood Count 2.99 MC/CUMM (3.8-5.5); Red Cell Distribution Width 14.1 % (9.3-17.3); White Blood Count 9.05 T/CUMM (4-12)
[2022-07-08] MEDS: METOPROLOL TARTRATE 50 MG TABLET PO SCH ×2 (09:15→20:43)
[2022-07-08] MEDS: PANTOPRAZOLE 40 MG TABLET PO SCH (09:15)
[2022-07-08] MEDS: amLODIPine 5 MG TABLET PO SCH (09:15)
[2022-07-08] MEDS: POLYETHYLENE GLYCOL POWDER 17 GM PACK PO SCH ×2 (09:16→20:43)
[2022-07-08] MEDS: HEPARIN 5,000 UNIT/1 ML VIAL SUBCUT SCH ×2 (09:17→20:43)
[2022-07-08] MEDS: SIMETHICONE CHEW 125 MG TABLET PO SCH ×4 (09:17→20:43)
[2022-07-08] MEDS: LINACLOTIDE 145 MCG CAPSULE PO SCH (09:17)
[2022-07-08] MEDS: MENTHOL/ZINC OXIDE OINT 71 GM JAR TOP SCH ×2 (09:18→20:43)
[2022-07-08] MEDS: NYSTATIN CREAM 15 GM TUBE TOP SCH ×2 (09:19→20:43)
[2022-07-08] MEDS: traMADol 50 MG TABLET PO PRN (22:06)
[2022-07-09] MEDS: POLYETHYLENE GLYCOL POWDER 17 GM PACK PO SCH (08:40)
[2022-07-09] MEDS: SIMETHICONE CHEW 125 MG TABLET PO SCH ×2 (08:40→12:49)
[2022-07-09] MEDS: PANTOPRAZOLE 40 MG TABLET PO SCH (08:41)
[2022-07-09] MEDS: amLODIPine 5 MG TABLET PO SCH (08:41)
[2022-07-09] MEDS: LINACLOTIDE 145 MCG CAPSULE PO SCH (08:41)
[2022-07-09] MEDS: traMADol 50 MG TABLET PO PRN (08:41)
[2022-07-09] MEDS: METOPROLOL TARTRATE 50 MG TABLET PO SCH (08:41)
[2022-07-09] MEDS: HEPARIN 5,000 UNIT/1 ML VIAL SUBCUT SCH (08:43)
[2022-07-09] MEDS: MENTHOL/ZINC OXIDE OINT 71 GM JAR TOP SCH (08:44)
[2022-07-09] MEDS: NYSTATIN CREAM 15 GM TUBE TOP SCH (08:44)
[2022-07-09 11:25] VITALS: BP 129/72
== END 2022-07-09 13:43 | DRG 872 ==
LOC: N.ED 14:27 → N.EDINP 17:30 → SUATTDRO 17:30 → N.ICU 19:33 → N.2E 07-01 17:33
PROVIDERS: ADMIT Family Medicine; ATTEND Hospitalist